=== PATIENT | male | born 1985 | race Caucasian/White ===

== ENCOUNTER 2018-12-06 08:40 | Emergency (ER) | payer MEDICAID ==
[~2018-12-06] VITALS: Ht 175.3 cm; Wt 68.2 kg
[~2018-12-06 08:40] MED LIST: CLIN300C85 PO; NO HOME MEDS
[2018-12-06 08:43] VITALS: BP 130/81
[2018-12-06] MEDS ORDERED: CLIN150C2 PO (09:25)
[2018-12-06] MEDS ORDERED: GENT5DRO4 LEFTEYE (09:25)
== END 2018-12-06 09:30 | disposition home or self-care (01) ==
LOC: ER 08:41
DX: S05.02XA Injury of conjunctiva and corneal abrasion without foreign body, left eye, initial encounter (principal); Z88.0 Allergy status to penicillin; Z91.018 Allergy to other foods; F17.210 Nicotine dependence, cigarettes, uncomplicated; F12.90 Cannabis use, unspecified, uncomplicated; X58.XXXA Exposure to other specified factors, initial encounter; Y93.89 Activity, other specified; Y92.89 Other specified places as the place of occurrence of the external cause; Y99.8 Other external cause status
CPT/HCPCS: 99283

== ENCOUNTER 2019-09-17 13:04 | Emergency (ER) | payer MEDICAID ==
[~2019-09-17] VITALS: Ht 175.3 cm; Wt 69.0 kg
[~2019-09-17 13:04] MED LIST changes: +CLIN-96 PO; -CLIN300C85 PO; +GENT5DRO4 LEFTEYE
[2019-09-17 13:30] VITALS: BP 134/69
[2019-09-17] MEDS ORDERED: SULF1TAB49 PO (13:37)
[2019-09-17] MEDS ORDERED: ERYT1OIN6 LEFTEYE (13:37)
== END 2019-09-17 14:06 | disposition home or self-care (01) ==
LOC: ER 13:04
DX: H00.014 Hordeolum externum left upper eyelid (principal); F41.9 Anxiety disorder, unspecified; F12.90 Cannabis use, unspecified, uncomplicated; Z60.2 Problems related to living alone; Z88.0 Allergy status to penicillin; Z88.8 Allergy status to other drugs, medicaments and biological substances; Z79.2 Long term (current) use of antibiotics
CPT/HCPCS: 99283

== ENCOUNTER 2023-06-13 15:02 | Emergency (ER) | payer MEDICAID ==
[~2023-06-13] VITALS: Ht 175.3 cm; Wt 68.2 kg
[~2023-06-13 15:02] MED LIST changes: -CLIN-96 PO; +CLIN-97 PO; +GENT5DRO22 LEFTEYE; -GENT5DRO4 LEFTEYE
[2023-06-13 15:34] VITALS: BP 112/67; PULSE 77; RESP 16; TEMP 99.2; O2SAT 100
[2023-06-13] MEDS ORDERED: BUPR1FIL3 SL (16:07)
[2023-06-14] MEDS ORDERED: BUPR1FIL3 SL (11:50)
[2023-06-14] MEDS ORDERED: BUPR1TAB45 SL (11:50)
== END 2023-06-13 16:25 | disposition home or self-care (01) ==
LOC: ER 15:03
DX: F11.10 Opioid abuse, uncomplicated (principal); F17.200 Nicotine dependence, unspecified, uncomplicated; F12.10 Cannabis abuse, uncomplicated; Z88.0 Allergy status to penicillin; Z88.8 Allergy status to other drugs, medicaments and biological substances; Z79.899 Other long term (current) drug therapy
CPT/HCPCS: 99283